=== PATIENT | female | born 1990 | race Caucasian/White ===

== ENCOUNTER 2018-11-25 17:50 | Inpatient (IN) | payer OTHER ==
[2018-11-25] MEDS ORDERED: OXYTOCIN 30 UNITS/LR 500 ML IV ×2 (21:00)
[2018-11-25] MEDS ORDERED: CARBOPROST 250 MCG INJ IM (21:00)
[2018-11-25] MEDS ORDERED: METHYLERGONOVINE 0.2 MG INJ IM (21:00)
[2018-11-25] MEDS ORDERED: MISOPROSTOL 200 MCG TAB PR (21:00)
[2018-11-25] MEDS: LACTATED RINGER'S 1,000 ML IV (21:13)
[2018-11-25 21:15] LABS: ADD MAN DIFF? NO
[2018-11-25 21:18] LABS: WHITE BLOOD COUNT 10.6 10^3/ul (4.8-10.8)
[2018-11-25 21:18] LABS: BASOPHILS % 0.2 % (0.0-2.0); EOSINOPHILS % 0.4 % (0.0-7.0); HEMATOCRIT 38.8 % (37.0-47.0); HEMOGLOBIN 12.6 g/dl (12.0-16.0); LYMPHOCYTES # 2.5 10^3/ul (0.8-2.9); LYMPHOCYTES % 23.8 % (15.0-51.0); MEAN CORPUSCULAR HEMOGLOBIN 26.8 pg (29.0-33.0); MEAN CORPUSCULAR HGB CONC 32.5 g/dl (32.0-37.0); MEAN CORPUSCULAR VOLUME 82.4 fl (82.0-101.0); MEAN PLATELET VOLUME 10.4 fl (7.4-10.4); MONOCYTE # 0.8 10^3/ul (0.3-0.9); MONOCYTES % 7.3 % (0.0-11.0); NEUTROPHIL # 7.2 10^3/ul (1.6-7.5); NEUTROPHILS % 67.6 % (39.0-77.0); PLATELET COUNT 276 10^3/UL (140-415); RED BLOOD COUNT 4.71 10^6/ul (4.20-5.40); RED CELL DISTRIBUTION WIDTH 15.6 % (11.5-14.5)
[2018-11-25 21:37] LABS: INR 0.81; PROTIME 11.3 Sec (11.9-14.9); PT RATIO 0.9
[2018-11-25 21:38] LABS: PARTIAL THROMBOPLASTIN TIME 24.7 Sec (23.0-35.0)
[2018-11-26] MEDS: OXYTOCIN 30 UNITS/LR 500 ML IV ×3 (00:12→12:22)
[2018-11-26] MEDS: LACTATED RINGER'S 1,000 ML IV ×3 (04:18→20:58)
[2018-11-26] MEDS: LIDOCAINE 1% (MPF) 30 ML INJ INJ (06:26)
[2018-11-26] MEDS ORDERED: CARBOPROST 250 MCG INJ IM (07:00)
[2018-11-26] MEDS ORDERED: METHYLERGONOVINE 0.2 MG INJ IM (07:00)
[2018-11-26] MEDS ORDERED: ACETAMINOPHEN 325 MG TAB PO ×2 (07:00)
[2018-11-26] MEDS ORDERED: OXYTOCIN 30 UNITS/LR 500 ML IV (07:00)
[2018-11-26] MEDS ORDERED: ONDANSETRON 4 MG INJ IV (07:00)
[2018-11-26] MEDS ORDERED: MISOPROSTOL 200 MCG TAB PR (07:00)
[2018-11-26] MEDS ORDERED: MAGNESIUM HYDROXIDE 30ML CUP PO (07:00)
[2018-11-26] MEDS ORDERED: DIBUCAINE 1% 30 GM OINT TOP (07:00)
[2018-11-26] MEDS: BENZOCAINE 20% 56 ML SPRAY TOP (10:50)
[2018-11-26] MEDS: WITCH HAZEL/GLYCERIN PAD PR (10:50)
[2018-11-26] MEDS: LANOLIN HPA 1 PKT TOP (10:51)
[2018-11-26] MEDS: IBUPROFEN 600 MG TAB PO ×2 (11:29→17:23)
[2018-11-26] MEDS: LACTATED RINGER'S 1,000 ML IV* ×3 (17:04→21:42)
[2018-11-26 21:49] LABS: RAPID PLASMA REAGIN NONREACTIVE (NR)
[2018-11-27] MEDS: LACTATED RINGER'S 1,000 ML IV (04:58)
[2018-11-27] MEDS: LACTATED RINGER'S 1,000 ML IV* (05:07)
[2018-11-27] MEDS: SENNA/DOCUSATE NA (8.6MG/50MG) TAB PO (08:29)
[2018-11-27 08:51] LABS: ADD MAN DIFF? NO
[2018-11-27 08:53] LABS: BASOPHILS % 0.3 % (0.0-2.0); EOSINOPHILS # 0.1 10^3/ul (0.0-0.5); EOSINOPHILS % 0.6 % (0.0-7.0); HEMATOCRIT 34.2 % (37.0-47.0); HEMOGLOBIN 11.1 g/dl (12.0-16.0); LYMPHOCYTES # 2.3 10^3/ul (0.8-2.9); LYMPHOCYTES % 23.9 % (15.0-51.0); MEAN CORPUSCULAR HEMOGLOBIN 26.7 pg (29.0-33.0); MEAN CORPUSCULAR HGB CONC 32.5 g/dl (32.0-37.0); MEAN CORPUSCULAR VOLUME 82.2 fl (82.0-101.0); MEAN PLATELET VOLUME 10.2 fl (7.4-10.4); MONOCYTE # 0.7 10^3/ul (0.3-0.9); MONOCYTES % 7.2 % (0.0-11.0); NEUTROPHIL # 6.3 10^3/ul (1.6-7.5); NEUTROPHILS % 67.2 % (39.0-77.0); PLATELET COUNT 211 10^3/UL (140-415); RED BLOOD COUNT 4.16 10^6/ul (4.20-5.40); RED CELL DISTRIBUTION WIDTH 15.9 % (11.5-14.5)
[2018-11-27 08:53] LABS: WHITE BLOOD COUNT 9.4 10^3/ul (4.8-10.8)
[2018-11-27] MEDS: IBUPROFEN 600 MG TAB PO (12:10)
[2018-11-28] MEDS: IBUPROFEN 600 MG TAB PO (01:58)
[2018-11-28] MEDS: BENZOCAINE 20% 56 ML SPRAY TOP (09:41)
[2018-11-28] MEDS: SENNA/DOCUSATE NA (8.6MG/50MG) TAB PO (09:41)
[2018-11-28] MEDS: WITCH HAZEL/GLYCERIN PAD PR (09:42)
== END 2018-11-28 14:20 | disposition home or self-care (01) | DRG 807 ==
LOC: PP1 11-26 08:15 → L-D 17:50
PROVIDERS: Obstetrics & Gynecology
PROC: 3E033VJ Introduction of Other Hormone into Peripheral Vein, Percutaneous Approach (ICD-10-PCS; 2018-11-25 18:00)
DX: O69.81X0 Labor and delivery complicated by cord around neck, without compression, not applicable or unspecified (principal); O70.0 First degree perineal laceration during delivery; Z37.0 Single live birth; Z3A.40 40 weeks gestation of pregnancy
CPT/HCPCS: 76815; 85025; 85610; 85730; 86592; 86850; 86900; 86901; 88307; 99464

== ENCOUNTER 2018-12-10 13:25 | Emergency (ER) | payer OTHER ==
[2018-12-10] MEDS: SODIUM CHLORIDE 0.9% 1L BAG IV* (16:03)
[2018-12-10 16:09] LABS: ADD MAN DIFF? NO
[2018-12-10 16:13] LABS: BASOPHILS % 0.2 % (0.0-2.0); HEMATOCRIT 40.1 % (37.0-47.0); HEMOGLOBIN 13.3 g/dl (12.0-16.0); LYMPHOCYTES # 1.6 10^3/ul (0.8-2.9); LYMPHOCYTES % 17.9 % (15.0-51.0); MEAN CORPUSCULAR HEMOGLOBIN 26.9 pg (29.0-33.0); MEAN CORPUSCULAR HGB CONC 33.2 g/dl (32.0-37.0); MEAN CORPUSCULAR VOLUME 81.2 fl (82.0-101.0); MEAN PLATELET VOLUME 9.9 fl (7.4-10.4); MONOCYTE # 0.8 10^3/ul (0.3-0.9); MONOCYTES % 8.8 % (0.0-11.0); NEUTROPHIL # 6.4 10^3/ul (1.6-7.5); NEUTROPHILS % 72.6 % (39.0-77.0); PLATELET COUNT 264 10^3/UL (140-415); RED BLOOD COUNT 4.94 10^6/ul (4.20-5.40); RED CELL DISTRIBUTION WIDTH 15.1 % (11.5-14.5)
[2018-12-10 16:13] LABS: WHITE BLOOD COUNT 8.9 10^3/ul (4.8-10.8)
[2018-12-10 16:25] LABS: ADD UMIC YES; UR ASCORBIC ACID NEGATIVE (NEGATIVE); UR BACTERIA FEW /HPF (NONE SEEN); UR BILIRUBIN (Dip) NEGATIVE (NEGATIVE); UR BLOOD (Dip) 3+ mg/dL (NEGATIVE); UR CLARITY CLOUDY (CLEAR); UR COLOR YELLOW (YELLOW); UR GLUCOSE (Dip) NEGATIVE (NEGATIVE); UR KETONES (Dip) 1+ mg/dL (NEGATIVE); UR LEUKOCYTE ESTERASE (Dip) 3+ Leu/ul (NEGATIVE); UR MUCUS MODERATE /HPF (NONE SEEN); UR NITRITE (Dip) NEGATIVE (NEGATIVE); UR NONSQUAMOUS EPITHELIAL CELL 2 /HPF (NONE SEEN); UR RBC 20 /HPF (0-5); UR SPECIFIC GRAVITY (Dip) 1.023 (1.003-1.030); UR SQUAMOUS EPITHELIAL CELL FEW /HPF (FEW); UR TOTAL PROTEIN (Dip) NEGATIVE (NEGATIVE); UR UROBILINOGEN (Dip) NEGATIVE (NEGATIVE); UR WBC 155 /HPF (0-5)
[2018-12-10] MEDS: CEFTRIAXONE 1 GM/50 ML (PMX) 50 ML IVPB (16:38)
[2018-12-10 16:47] LABS: INR 0.96; PROTIME 12.9 Sec (11.9-14.9)
[2018-12-10 16:50] LABS: ALANINE AMINOTRANSFERASE 44 IU/L (13-69); ALBUMIN 4.3 g/dl (3.3-4.9); ALKALINE PHOSPHATASE 170 IU/L (42-121); ANION GAP 11 (5-13); ASPARTATE AMINO TRANSFERASE 34 IU/L (15-46); BILIRUBIN,INDIRECT 0.6 mg/dl (0-1.1); BILIRUBIN,TOTAL 0.6 mg/dl (0.2-1.3); BLOOD UREA NITROGEN 9 mg/dl (7-20); CARBON DIOXIDE 23 mmol/L (21-31); CHLORIDE 104 mmol/L (97-110); CREATININE 0.57 mg/dl (0.44-1.00); Estimated GFR > 60 mL/min (>60); GLUCOSE 101 mg/dl (70-220); POTASSIUM 3.6 mmol/L (3.5-5.1); SODIUM 138 mmol/L (135-144); TOTAL PROTEIN 7.6 g/dl (6.1-8.1)
[2018-12-10 17:01] LABS: TROPONIN-I < 0.012 ng/ml (0.000-0.120)
[2018-12-10] MEDS: IBUPROFEN 600 MG TAB PO (17:58)
[2018-12-10] MEDS: ACETAMINOPHEN 325 MG TAB PO (17:58)
== END 2018-12-10 19:43 | disposition home or self-care (01) ==
LOC: FTE 13:25
DX: O86.4 Pyrexia of unknown origin following delivery (principal); B97.89 Other viral agents as the cause of diseases classified elsewhere; O90.89 Other complications of the puerperium, not elsewhere classified; R07.9 Chest pain, unspecified
CPT/HCPCS: 36415; 71045; 76856; 80053; 81001; 83605; 84484; 85025; 85610; 85730; 87040-91; 87086; 93005; 96374; 99285-25

== ENCOUNTER 2019-05-07 16:32 | Emergency (ER) | payer OTHER ==
[2019-05-07] MEDS: HYDROCODONE/APAP (10/325) TAB PO (19:15)
[2019-05-07] MEDS: KETOROLAC 30 MG INJ IM (19:16)
== END 2019-05-07 20:16 | disposition home or self-care (01) ==
LOC: FTE 16:32
DX: M62.830 Muscle spasm of back (principal)
CPT/HCPCS: 81025; 96372; 99284-25